=== PATIENT | female | born 1990 | race Two or more races ===

== ENCOUNTER 2018-01-09 05:17 | Emergency (ER) | payer MEDICAID ==
[~2018-01-09] VITALS: Ht 162.6 cm; Wt 80.7 kg
[2018-01-09 06:00] VITALS: BP 130/75
[2018-01-09] MEDS ORDERED: IBUPROFEN 800 MG TAB PO ONE (07:30)
== END 2018-01-09 07:37 | disposition home or self-care (01) ==
LOC: ER 05:17
DX: S93.402A Sprain of unspecified ligament of left ankle, initial encounter (principal); F17.210 Nicotine dependence, cigarettes, uncomplicated; X50.1XXA Overexertion from prolonged static or awkward postures, initial encounter; Y93.39 Activity, other involving climbing, rappelling and jumping off; Y99.8 Other external cause status; Y92.89 Other specified places as the place of occurrence of the external cause
CPT/HCPCS: 73610